=== PATIENT | female | born 1990 | race Caucasian/White ===

== ENCOUNTER 2022-03-25 06:15 | Inpatient (IN) | payer OTHER ==
[2022-03-25 07:32] VITALS: BMI 35.1
[2022-03-25] MEDS ORDERED: ceFAZolin SODIUM 1 GM VIAL ONE ×2 (08:08)
[2022-03-25] MEDS ORDERED: DEXAMETHASONE SOD PHOSPHATE 4 MG/1 ML VIAL ONE (08:08)
[2022-03-25] MEDS ORDERED: OXYTOCIN 10 UNITS/ML VIAL ONE ×3 (08:08)
[2022-03-25] MEDS ORDERED: ONDANSETRON 4 MG/2 ML VIAL ONE (08:08)
[2022-03-25] MEDS ORDERED: morphine SULFATE/PF 1 MG/2 ML (2cc Syringe - QUVA) IT ONE (08:15)
[2022-03-25] MEDS ORDERED: CITRIC ACID/SODIUM CITRATE 30 ML UNIT-DOSE CUP PO ONE (08:26)
[2022-03-25] MEDS ORDERED: ELECTROLYTE-148 SOLN 1,000 ML IV SCH (08:30)
[2022-03-25] MEDS ORDERED: ePHEDrine SULFATE 50 MG/1 ML AMPULE ONE (09:05)
[2022-03-25] MEDS ORDERED: ACETAMINOPHEN 325 MG TABLET (FP) PO PRN (09:21)
[2022-03-25] MEDS ORDERED: METHYLERGONOVINE MALEATE 0.2 MG/1 ML AMP IM PRN (09:21)
[2022-03-25] MEDS ORDERED: IBUPROFEN 800 MG/8 ML IJ IVPB PRN (09:22)
[2022-03-25 09:48] LABS: CORD BASE EXCESS -2.4 mmol/L (0-2); CORD PCO2 41.9 mmHg (30-78); CORD pH 7.357 (7.14-7.44)
[2022-03-25 09:50] LABS: CORD HCO3 22.4 mmHg (20-29); CORD PCO2 53.2 mmHg (30-78); CORD pH 7.243 (7.14-7.44)
[2022-03-25] MEDS ORDERED: ONDANSETRON 4 MG/2 ML VIAL IVPUSH PRN (09:51)
[2022-03-25] MEDS ORDERED: ACETAMINOPHEN 1000 MG/100 ML BAG IVPB ONE (09:52)
[2022-03-25] MEDS ORDERED: CEFAZOLIN 1 GM/D5W 1 GM/50 ML BAG IVPB SCH (10:00)
[2022-03-25] MEDS ORDERED: OXYTOCIN 20 UNITS in 0.9% NS 20 UNIT/1,000 ML INFUS.BAG IV ONE (10:29)
[2022-03-25] MEDS: OXYTOCIN 20 UNITS in 0.9% NS 20 UNIT/1,000 ML INFUS.BAG IV SCH ×2 (10:30→19:00)
[2022-03-25] MEDS: CEFAZOLIN 1 GM in DEXTROSE 5%-WATER - 50 ML IVPB SCH (17:47)
[2022-03-26] MEDS: CEFAZOLIN 1 GM in DEXTROSE 5%-WATER - 50 ML IVPB SCH ×2 (01:25→09:24)
[2022-03-26] MEDS: SIMETHICONE 80 MG TAB.CHEW (FP) PO PRN ×3 (01:45→16:06)
[2022-03-26] MEDS: oxyCODONE HCL 5 MG TABLET PO PRN ×4 (01:45→16:48)
[2022-03-26 08:12] LABS: BASO % 0.3 % (0-2.0); EOS % 0.9 % (0-4.5); HEMATOCRIT 26.8 % (32.4-45.2); HEMOGLOBIN 8.7 GM/dL (10.7-15.3); MCH 26.2 pg (25.7-33.7); MCHC 32.5 g/dl (32.0-36.0); MEAN CELL VOLUME 80.6 fl (80-96); MEAN PLT VOLUME 7.4 fl (7.5-11.1); MONO % 9.1 % (3.8-10.2); NEUT % 66.7 % (42.8-82.8); PLATELET COUNT 285 10^3/uL (134-434); RBC 3.33 M/mm3 (3.60-5.2); RDW 18.4 % (11.6-15.6); WHITE BLOOD COUNT 9.2 K/mm3 (4.0-10.0)
[2022-03-26] MEDS ORDERED: BISACODYL 10 MG SUPP.RECT RC PRN (09:21)
[2022-03-26] MEDS: IBUPROFEN 600 MG TABLET (FP) PO PRN ×2 (09:25→19:37)
[2022-03-26] MEDS: ENOXAPARIN NA (PORCINE) 40 MG/0.4 ML DISP.SYRIN SQ SCH (09:27)
[2022-03-26] MEDS: FERROUS SO4 325 MG TABLET (FP) PO SCH (10:18)
[2022-03-26] MEDS: OXYTOCIN 20 UNITS in 0.9% NS 20 UNIT/1,000 ML INFUS.BAG IV SCH (19:07)
[2022-03-27] MEDS: IBUPROFEN 600 MG TABLET (FP) PO PRN ×2 (07:58→13:47)
[2022-03-27] MEDS: SIMETHICONE 80 MG TAB.CHEW (FP) PO PRN ×3 (07:59→20:39)
[2022-03-27] MEDS: FERROUS SO4 325 MG TABLET (FP) PO SCH (09:32)
[2022-03-27] MEDS: ENOXAPARIN NA (PORCINE) 40 MG/0.4 ML DISP.SYRIN SQ SCH (09:33)
[2022-03-27] MEDS: PRENATAL VITAMINS W/ FOLIC ACID TABLET (FP) PO SCH (13:50)
[2022-03-27] MEDS: oxyCODONE HCL 5 MG TABLET PO PRN (20:39)
[2022-03-27 22:43] VITALS: TEMP 98.2
[2022-03-28] MEDS: oxyCODONE HCL 5 MG TABLET PO PRN (02:06)
[2022-03-28] MEDS: SIMETHICONE 80 MG TAB.CHEW (FP) PO PRN ×2 (02:06→09:32)
[2022-03-28] MEDS: IBUPROFEN 600 MG TABLET (FP) PO PRN (09:32)
[2022-03-28] MEDS: PRENATAL VITAMINS W/ FOLIC ACID TABLET (FP) PO SCH (09:32)
[2022-03-28] MEDS: ENOXAPARIN NA (PORCINE) 40 MG/0.4 ML DISP.SYRIN SQ SCH (09:32)
[2022-03-28] MEDS: FERROUS SO4 325 MG TABLET (FP) PO SCH (09:32)
[2022-03-28] MEDS ORDERED: PRENATAL VITAMINS W/ FOLIC ACID TABLET (FP) PO SCH (10:00)
[2022-03-28 10:37] LABS: BASO % 0.3 % (0-2.0); EOS % 2.3 % (0-4.5); HEMATOCRIT 29.3 % (32.4-45.2); HEMOGLOBIN 9.4 GM/dL (10.7-15.3); LYMPH % 20.1 % (8-40); MCH 25.9 pg (25.7-33.7); MCHC 31.9 g/dl (32.0-36.0); MEAN CELL VOLUME 81.2 fl (80-96); MEAN PLT VOLUME 7.3 fl (7.5-11.1); MONO % 6.3 % (3.8-10.2); PLATELET COUNT 385 10^3/uL (134-434); RBC 3.61 M/mm3 (3.60-5.2); WHITE BLOOD COUNT 9.2 K/mm3 (4.0-10.0)
[2022-03-28 10:43] VITALS: BP 101/68; PULSE 80; RESP 18
== END 2022-03-28 12:40 | disposition home or self-care (01) | DRG 540 ==
LOC: JLDR 06:15 → J3W 11:00
PROVIDERS: ADMIT Obstetrics & Gynecology; ATTEND Obstetrics & Gynecology
PROC: 10D00Z1 Extraction of Products of Conception, Low, Open Approach (ICD-10-PCS; principal; 2022-03-25)
DX: O32.8XX0 Maternal care for other malpresentation of fetus, not applicable or unspecified (principal); Z3A.39 39 weeks gestation of pregnancy; Z37.0 Single live birth; Z86.19 Personal history of other infectious and parasitic diseases
CPT/HCPCS: 36415; 36600; 82803; 85025; 88307-TC